=== PATIENT | female | born 1975 | race Caucasian/White ===

== ENCOUNTER 2017-07-02 02:39 | Emergency (ER) | payer MEDICAID ==
[2017-07-02] MEDS: ALPRAZOLAM 1 MG TAB PO (04:26)
== END 2017-07-02 06:07 | disposition home or self-care (01) ==
LOC: FTE 02:39
DX: F41.9 Anxiety disorder, unspecified (principal); R42 Dizziness and giddiness
CPT/HCPCS: 93005; 99283-25